=== PATIENT | female | born 1955 | race Caucasian/White ===

== ENCOUNTER 2022-01-13 11:43 | Emergency (ER) | payer OTHER, SELFPAY ==
[2022-01-13 11:50] VITALS: BP 155/83; PULSE 76; RESP 20; TEMP 36.5; O2SAT 95; BMI 33.8
--- NOTE | 2022-01-13 12:40 | CRLHL7_ITS ---
For Patients: As a result of the Cures Act, medical imaging exams and procedure reports are released immediately into your electronic medical record. You may view this report before your referring provider. If you have questions, please contact your health care provider. Indication: Injury and pain. Technique: Left knee 3 views Comparison: 08/16/2020 Findings: Bones: Alignment is normal. No fractures or bone lesions. Joint spaces: No joint effusion. Mild medial compartment narrowing. Mild chondrocalcinosis. Soft tissues: Unremarkable. Impression: No sign of acute injury. Dictated by Everton Delgadillo MD @ 01/13/2022 1:04:35 PM (Electronically Signed)
--- NOTE | 2022-01-13 13:18 | ED.GENADULT ---
HPI - General Adult General Chief complaint: Extremity Pain/Injury, Lower Stated complaint: Left knee pain Time Seen by Provider: 01/13/22 12:05 History of Present Illness HPI narrative: Oliver is a 66yo female that identifies as male that presents to the ED with complaints of left knee pain after a fall at home. The patient denies dizziness or confusion prior to fall, reporting the patient tripped in the home. Patient denies hitting head or loss of consciousness. Patient denies numbness, tingling, or weakness. Patient reports difficulty getting up after fall but was able to ambulate. Patient denies previous injury or trauma to the left knee. Patient denies decreased range of motion. The patient has no other acute concerns or complaints. The patient has taken Tylenol prior to arrival for pain control, with minimal improvement in symptoms. See nursing notes for additional details. Related Data Home Medications Medication Instructions Recorded Confirmed albuterol sulfate 2.5 mg/3 mL mg 01/13/22 (0.083 %) solution for nebulization albuterol sulfate 90 mcg/actuation inhalation 01/13/22 aerosol inhaler aspirin 81 mg tablet,delayed mg 01/13/22 release calcium carbonate 500 mg-vitamin tab 01/13/22 D3 5 mcg (200 unit) tablet (Oyster Shell Calcium-Vitamin D3) cranberry extract 500 mg capsule mg 01/13/22 (Cranberry Concentrate) escitalopram oxalate 20 mg tablet mg 01/13/22 hyoscyamine sulfate 0.125 mg tablet mg 01/13/22 metformin 1,000 mg tablet mg 01/13/22 metoprolol tartrate 25 mg tablet mg 01/13/22 multivitamin tab 01/13/22 olanzapine 10 mg tablet mg 01/13/22 pantoprazole 40 mg tablet,delayed mg PO 01/13/22 release rosuvastatin 5 mg tablet mg 01/13/22 sumatriptan succinate 6 mg subcut .q 2hr PRN migraine 01/13/22 01/13/22 headache Allergies Allergy/AdvReac Type Severity Reaction Status Date / Time adhesive tape Allergy Verified 01/13/22 12:00 Barbiturates Allergy Verified 01/13/22 12:00 bupropion [From Wellbutrin] Allergy Verified 01/13/22 12:00 divalproex sodium Allergy Verified 01/13/22 12:00 [From Depakote] erythromycin base Allergy Verified 01/13/22 12:00 esomeprazole [From Nexium] Allergy Verified 01/13/22 12:00 famotidine [From Pepcid] Allergy Verified 01/13/22 12:00 lansoprazole [From Prevacid] Allergy Verified 01/13/22 12:00 omeprazole [From Prilosec] Allergy Verified 01/13/22 12:00 phenytoin [From Dilantin] Allergy Verified 01/13/22 12:00 sucralfate [From Carafate] Allergy Verified 01/13/22 12:00 Sulfa (Sulfonamide Allergy Verified 01/13/22 12:00 Antibiotics) valproic acid Allergy Verified 01/13/22 12:00 Review of Systems Const: Denies: fatigue or malaise Cardio: Denies: chest pain, palpitations or shortness of breath with exertion Resp: Denies: shortness of breath GI: Denies: abdominal pain or nausea Musculo: Reports: extremity pain and joint pain; Denies: extremity swelling, limited range of motion or muscle weakness Integ/Breast: Reports: other (Minor abrasion noted to the knee.) Neuro: Denies: numbness in extremities, weakness in extremities, lack of coordination, dizziness or confusion Endo: Denies: fatigue PFSH PFSH Social History Smoking Status: Never smoker Do you use any of these nicotine containing products: None Second hand tobacco smoke exposure: No How often do you have a drink containing alcohol: never How often do you have six or more drinks on one occasion: Never AUDIT-C Alcohol total score: 0 Non-prescribed substance use: denies use service: No Exam Const: Vital Signs, click to edit/add: Vital Signs - 24 hr 01/13/22 11:50 Temperature 97.7 F Pulse Rate [Right Pulse Oximeter] 76 Respiratory Rate 20 Blood Pressure [Ri ght Upper Arm] 155/83 H Pulse Oximetry 95 Oxygen Delivery Me thod Room Air Documenting provider has reviewed patient's vital signs: yes Common normals: no apparent distress, oriented x3, no limitations and alert General appearance: cooperative and comfortable; not in distress Nutritional appearance: obese Orientation/consciousness: Yes awake, Yes oriented to person, Yes oriented to place and Yes oriented to time HENMT: Common normals: normocephalic and head/scalp atraumatic Head and scalp: normocephalic and atraumatic Resp: Common normals: normal respiratory effort, no use of accessory muscles and clear to auscultation bilaterally Effort & inspection: able to speak in complete sentences Auscultation: clear to auscultation bilaterally Cardio: Common normals: regular rate, regular rhythm, S1 normal heart sound, S2 normal heart sound and peripheral pulses 2+ throughout Rate: regular rate Rhythm: regular rhythm Heart sounds: S1 normal and S2 normal Peripheral pulses: pulses 2+ throughout Extremity: Common normals: normal to inspection (With the exception of a minor abrasion noted to the anterior knee.), no joint enlargement, no clubbing, cyanosis or edema, no calf tenderness and no pedal edema Left lower extremity: knee joint (Normal, with the exception of the minor abrasion noted to the anterior knee) Left knee: inspection, palpation (Nontender), ROM (Limited secondary to patient's body habitus.) and neurovascular exam (Intact. Denies motor or sensory weakness.) Neuro: Common normals: oriented x3 Sensorium/orientation: awake, alert, oriented to person, oriented to place and oriented to time Gait (neuro): normal gait (For patient with obesity wide based gait noted.) Psych: Common normals: mental status grossly normal, thought process normal, cooperative and affect normal Thought process: normal thought process Skin: Common normals: no rashes or lesions noted (Apart from minor abrasion to the left knee) General skin exam: no rashes or lesions noted (Apart from minor abrasion to the left knee) Course Course Hospital Course: Oliver arrived for knee pain that was evaluated with imaging, found to have no evidence of acute dislocation or fracture. Patient reports no significant change in symptoms. Patient's vital signs have remained stable. The results were discussed, and the patient and significant other verbalized understanding. Reasons for follow-up or return were discussed. Vital Signs Vital signs: Initial Vital Signs Temperature 97.7 F 01/13/22 11:50 Temperature Source Temporal Artery Scan 01/13/22 11:50 Pulse Rate 76 01/13/22 11:50 Respiratory Rate 20 01/13/22 11:50 Blood Pressure 155/83 H 01/13/22 11:50 Blood Pressure Mean 107 01/13/22 11:50 Blood Pressure Position Sitting 01/13/22 11:50 Pulse Oximetry 95 01/13/22 11:50 Oxygen Delivery Method 01/13/22 11:50 Vital Signs Temperature 97.7 F 01/13/22 11:50 Pulse Rate 76 01/13/22 11:50 Respiratory Rate 20 01/13/22 11:50 Blood Pressure 155/83 H 01/13/22 11:50 Pulse Oximetry 95 01/13/22 11:50 Oxygen Delivery Method 01/13/22 11:50 Temperature 97.7 F 01/13/22 11:50 Pulse Rate 76 01/13/22 11:50 Respiratory Rate 20 01/13/22 11:50 Blood Pressure 155/83 H 01/13/22 11:50 Pulse Oximetry 95 01/13/22 11:50 Oxygen Delivery Method 01/13/22 11:50 Medical Decision Making MDM Narrative Medical decision making narrative: Differential diagnosis include fracture, sprain and strain, contusion, dislocation, ligament or tendon damage, and other etiologies. Imaging Data Knee XR: Radiologist's impression: Impression: No sign of acute injury. Discharge Plan Discharge Clinical Impression: Acute knee pain, Fall Patient Disposition: Home, Self-Care Condition: Stable Instructions: Knee Pain (ED) Additional Instructions: Thank you for choosing [facility] for your care today. Take NSAID of choice - Advil, Aleve, Motrin, or substitute - scheduled per package directions with food for 72hrs. Take Tylenol, or substitute, per package directions. Use RICE - rest, ice, compression, and elevation - as needed for symptom control. I recommend following up with your primary physician in 1-2wks if a significant improvement of symptoms is not noted. Continue routine activity as tolerated. You may consider topical medications including capsaicin or lidocaine patches to assist with symptom control. If new or worsening symptoms develop or you have any concerns in the meantime, please call your primary care clinic or return to the ER for re-evaluation. Activity Level: Activity as Tolerated Discharge Diet: Heart Healthy (2 gm sodium, low fat) Prescriptions: No Action multivitamin Tablet Label Comments: TAKE ONE TABLET BY MOUTH EVERY DAY albuterol sulfate 2.5 mg /3 mL (0.083 %) solution for nebulization Label Comments: INHALE 3ML (1 AMPULE) VIA A NEBULIZER EVERY 4 HOURS IF NEEDED FOR FOR SHORTNESS OF BREATH; 1ST CHOICE olanzapine 10 mg tablet Label Comments: TAKE ONE-HALF TABLET BY MOUTH TWICE A DAY aspirin 81 mg tablet,delayed release (DR/EC) Label Comments: TAKE ONE TABLET BY MOUTH ONCE DAILY WITH A MEAL pantoprazole 40 mg tablet,delayed release (DR/EC) PO Label Comments: TAKE ONE TABLET BY MOUTH TWICE A DAY BEFORE MEALS ; TAKE 30-60 MINUTES BEFORE A MEAL/FOOD TWICE A DAY hyoscyamine sulfate 0.125 mg tablet Label Comments: TAKE ONE TABLET BY MOUTH EVERY 4 HOURS NEEDED metformin 1,000 mg tablet Label Comments: TAKE ONE TABLET BY MOUTH TWICE A DAY WITH MEALS albuterol sulfate 90 mcg/actuation HFA aerosol inhaler INHALATION Label Comments: INHALE ONE TO TWO PUFFS BY MOUTH EVERY 4 HOURS NEEDED escitalopram oxalate 20 mg tablet Label Comments: TAKE ONE TABLET BY MOUTH EVERY DAY rosuvastatin 5 mg tablet Label Comments: TAKE ONE TABLET BY MOUTH AT BEDTIME cranberry extract [Cranberry Concentrate] 500 mg capsule Label Comments: TAKE ONE CAPSULE BY MOUTH EVERY DAY metoprolol tartrate 25 mg tablet Label Comments: TAKE ONE TABLET BY MOUTH TWICE A DAY calcium carbonate-vitamin D3 [Oyster Shell Calcium-Vit D3] 500 mg-5 mcg (200 unit) tablet Label Comments: TAKE ONE TABLET BY MOUTH TWICE A DAY WITH MEALS sumatriptan succinate 6 mg subcut .q 2hr PRN (Reason: migraine headache) Follow Up/Referrals: Milad Mock MD [Primary Care Provider] - Stand Alone Forms: [employer] Info Instructions
[2022-01-13] MEDS: KETOROLAC 30 MG/ML inj IM (13:38)
== END 2022-01-13 13:46 | disposition home or self-care (01) ==
PROVIDERS: Emergency Provider Family Medicine; PCP Surgery
DX: M25.562 Pain in left knee (principal); W01.0XXA Fall on same level from slipping, tripping and stumbling without subsequent striking against object, initial encounter
CPT/HCPCS: 73562; 96372; 99283; J1885

== ENCOUNTER 2022-04-08 12:59 | Outpatient (CLI) | payer OTHER, SELFPAY | END 2022-04-08 13:00 | disposition home or self-care (01) | PROVIDERS: PCP Surgery; Visit Provider Family Medicine | DX: S09.93XA Unspecified injury of face, initial encounter (principal); S19.9XXA Unspecified injury of neck, initial encounter; W18.30XA Fall on same level, unspecified, initial encounter; Y92.481 Parking lot as the place of occurrence of the external cause | CPT/HCPCS: A0425; A0429 ==

== ENCOUNTER 2022-10-09 12:41 | Emergency (ER) | payer OTHER, SELFPAY ==
[2022-10-09] VITALS (15 sets, daily range): BP systolic 142–164; BP diastolic 85–152; PULSE 100–129; RESP 20; TEMP 36.6; O2SAT 94–97; BMI 32.0
--- NOTE | 2022-10-09 13:16 | ED_ITS ---
HPI - General Adult General Chief complaint: Weakness Stated complaint: UTI complications Time Seen by Provider: 10/09/22 12:46 History of Present Illness HPI narrative: This 67-year-old female who prefers to be referred to as a mail with male pronouns comes in reporting generalized weakness with some low back pain. He was treated for a urinary tract infection about 3 weeks ago and completed the treatment. There is no report of ongoing dysuria symptoms. He does arrive with normal vital signs except for slightly increased heart rate at around 105-110 beats per minute. He does report a dry mouth. There is no report of fever, cough, or shortness of breath. Related Data Home Medications Medication Instructions Recorded Confirmed albuterol sulfate 2.5 mg/3 mL mg 01/13/22 (0.083 %) solution for nebulization albuterol sulfate 90 mcg/actuation inhalation 01/13/22 aerosol inhaler aspirin 81 mg tablet,delayed mg 01/13/22 release calcium carbonate 500 mg-vitamin tab 01/13/22 D3 5 mcg (200 unit) tablet (Oyster Shell Calcium-Vitamin D3) cranberry extract 500 mg capsule mg 01/13/22 (Cranberry Concentrate) escitalopram oxalate 20 mg tablet mg 01/13/22 hyoscyamine sulfate 0.125 mg tablet mg 01/13/22 metformin 1,000 mg tablet mg 01/13/22 metoprolol tartrate 25 mg tablet mg 01/13/22 multivitamin tab 01/13/22 olanzapine 10 mg tablet mg 01/13/22 pantoprazole 40 mg tablet,delayed mg PO 01/13/22 release rosuvastatin 5 mg tablet mg 01/13/22 sumatriptan succinate 6 mg subcut .q 2hr PRN migraine 01/13/22 01/13/22 headache Previous Rx's Medication Instructions Recorded fluconazole 100 mg tablet 100 mg PO DAILY #7 tabs 10/09/22 (Diflucan) Allergies Allergy/AdvReac Type Severity Reaction Status Date / Time adhesive tape Allergy Verified 01/13/22 12:00 Barbiturates Allergy Verified 01/13/22 12:00 bupropion [From Wellbutrin] Allergy Verified 01/13/22 12:00 divalproex sodium Allergy Verified 01/13/22 12:00 [From Depakote] erythromycin base Allergy Verified 01/13/22 12:00 esomeprazole [From Nexium] Allergy Verified 01/13/22 12:00 famotidine [From Pepcid] Allergy Verified 01/13/22 12:00 lansoprazole [From Prevacid] Allergy Verified 01/13/22 12:00 omeprazole [From Prilosec] Allergy Verified 01/13/22 12:00 phenytoin [From Dilantin] Allergy Verified 01/13/22 12:00 sucralfate [From Carafate] Allergy Verified 01/13/22 12:00 Sulfa (Sulfonamide Allergy Verified 01/13/22 12:00 Antibiotics) valproic acid Allergy Verified 01/13/22 12:00 Review of Systems Status of ROS: Reports: 10 or more systems reviewed and unremarkable except as noted in History and below Narrative: Constitutional: No fevers, no weight gain or loss. Eyes: No discharge. No vision changes. HENT: No congestion, no sore throat, no ear pain. Cardiovascular: No chest pain, no palpitations. Respiratory: No shortness of breath, no wheezes, no cough. Gastrointestinal: No abdominal pain, no vomiting, no diarrhea. Genitourinary: No dysuria, no hematuria. Musculoskeletal: Normal range of motion. Low back pain. Skin: No rashes, no pruritis. Neurological: No dizziness, sensory change, speech change. Generalized weakness . Endo/Heme/Allergies: No bruising or bleeding. No polydipsia. Pysch: no suicidality, no anxiety, no insomnia. All other systems reviewed and are negative. [facility] Social History Smoking Status: Never smoker Do you use any of these nicotine containing products: None Second hand tobacco smoke exposure: No How often do you have a drink containing alcohol: never How often do you have six or more drinks on one occasion: Never AUDIT-C Alcohol total score: 0 Non-prescribed substance use: denies use service: No Exam Narrative: Exam Narrative: Constitutional: Well-developed, well-nourished, no acute distress. HEENT: Normocephalic, atraumatic. Mouth appears somewhat dry. Neck: Normal range of motion. Nontender. Supple. Heart: Regular. No murmurs. Normal rate. Intact distal pulses. Lungs: Clear to auscultation. No chest discomfort. No wheezes, rhonchi, or rales. Abdomen: Normal bowel sounds. Nontender. No rebound tenderness. Genitalia: Deferred. Back: No midline tenderness. Normal range of motion. Extremities: Normal range of motion. No injury. No pedal edema. Skin: Intact. No rash. Warm. No erythema or pallor. Neurologic: No altered sensation. No weakness. Alert and oriented. Psychiatric: No suicidality. No anxiety or depression. No insomnia. Nursing notes and vitals signs are reviewed. Const: Vital Signs, click to edit/add: Vital Signs - 24 hr 10/09/22 12:50 10/09/22 14:27 10/09/22 14:30 Temperature 97.9 F Pulse Rate 120 H 115 H Pulse Rate [Pulse Oximeter] 112 H Respiratory Rate 20 Blood Pressure [Ri ght Forearm] 149/97 H Pulse Oximetry 94 95 96 Oxygen Delivery Me thod Room Air Course Vital Signs Vital signs: Initial Vital Signs Temperature 97.9 F 10/09/22 12:50 Temperature Source Temporal Artery Scan 10/09/22 12:50 Pulse Rate 112 H 10/09/22 12:50 Pulse Rhythm Regular 10/09/22 12:50 Respiratory Rate 20 10/09/22 12:50 Blood Pressure 149/97 H 10/09/22 12:50 Blood Pressure Mean 114 H 10/09/22 12:50 Blood Pressure Position Supine 10/09/22 12:50 Pulse Oximetry 94 10/09/22 12:50 Oxygen Delivery Method Room Air 10/09/22 12:50 Vital Signs Temperature 97.9 F 10/09/22 12:50 Pulse Rate 112 H 10/09/22 12:50 Respiratory Rate 20 10/09/22 12:50 Blood Pressure 149/97 H 10/09/22 12:50 Pulse Oximetry 94 10/09/22 12:50 Oxygen Delivery Method Room Air 10/09/22 12:50 Temperature 97.9 F 10/09/22 12:50 Pulse Rate 115 H 10/09/22 14:30 Respiratory Rate 20 10/09/22 12:50 Blood Pressure 149/97 H 10/09/22 12:50 Pulse Oximetry 96 10/09/22 14:30 Oxygen Delivery Method Room Air 10/09/22 12:50 Medical Decision Making MDM Narrative Medical decision making narrative: An IV was established where he received a L of normal saline. Lab results are acquired and returned with reassuring findings. A urinalysis was ordered and 2 attempts were made to collect urine but in both cases he missed the hat. There is no report of any dysuria symptoms. The patient's partner stated that there was a question whether there may be some thrush as he did finish an antibiotic a week or 2 ago. He did receive an oral tablet of Diflucan 100 mg. At the time of discharge the patient appears safe for outpatient management. The treatment plan is reviewed along with written and verbal return precautions. Reasons to return and the importance of close followup were also reviewed. Lab Data Labs: Lab Results 10/09/22 10/09/22 Range/Units 13:14 13:55 WBC 8.39 (4.50-11.00) K/uL RBC 4.38 (4.00-5.20) m/uL Hgb 13.4 (12.0-16.0) gm/dL Hct 39.5 (33.0-51.0) % MCV 90 (80-100) fL MCH 31 (26-34) pg MCHC 34 (32-36) gm/dL RDW Coeff of Brody 13.3 (11.5-15.5) % Plt Count 346 (140-440) K/uL Neut % (Auto) 65.4 (42.0-72.0) % Lymph % (Auto) 22.5 (20-44) % [place] % (Auto) 8.9 (0.0-11.0) % Eos % (Auto) 2.4 (0.0-7.0) % Baso % (Auto) 0.6 (0.0-3.0) % Neut # (Auto) 5.48 (1.7-7.0) K/uL Lymph # (Auto) 1.89 (0.90-2.90) K/uL [place] # (Auto) 0.70 (0.00-0.90) K/UL Eos # (Auto) 0.20 (0.00-0.50) K/uL Baso # (Auto) 0.05 (0.00-0.30) K/uL Sodium 136 (135-149) mmol/L Potassium 4.2 (3.6-5.1) mmol/L Chloride 104 (96-114) mmol/L Carbon Dioxide 24 (20-32) mmol/L BUN 16 (7-30) mg/dL Creatinine 0.9 (0.5-1.5) mg/dL Estimated Creat Clear 41.99 Estimated GFR 69 ml/min Glucose 97 (60-115) mg/dL Calcium 9.2 (8.4-10.6) mg/dL POC Troponin I 0.04 (0.01-0.04) ng/ml ECG Data Attestation: I personally reviewed and interpreted this ECG as follows: Interpretation: Sinus tachycardia, rate 107 beats per minute. There are no specific ST or T- wave abnormalities. Discharge Plan Discharge Clinical Impression: Weakness, Fluid volume depletion Patient Disposition: Home w/ Parent or Adult Condition: Stable Additional Instructions: Continue current plans. Activity as tolerated. Follow up with MD or return if worsening. Prescriptions: New fluconazole [Diflucan] 100 mg tablet 100 mg PO DAILY Qty: 7 0RF No Action multivitamin Tablet Patient Comments: TAKE ONE TABLET BY MOUTH EVERY DAY albuterol sulfate 2.5 mg /3 mL (0.083 %) solution for nebulization Patient Comments: INHALE 3ML (1 AMPULE) VIA A NEBULIZER EVERY 4 HOURS IF NEEDED FOR FOR SHORTNESS OF BREATH; 1ST CHOICE olanzapine 10 mg tablet Patient Comments: TAKE ONE-HALF TABLET BY MOUTH TWICE A DAY aspirin 81 mg tablet,delayed release (DR/EC) Patient Comments: TAKE ONE TABLET BY MOUTH ONCE DAILY WITH A MEAL pantoprazole 40 mg tablet,delayed release (DR/EC) PO Patient Comments: TAKE ONE TABLET BY MOUTH TWICE A DAY BEFORE MEALS ; TAKE 30-60 MINUTES BEFORE A MEAL/FOOD TWICE A DAY hyoscyamine sulfate 0.125 mg tablet Patient Comments: TAKE ONE TABLET BY MOUTH EVERY 4 HOURS NEEDED metformin 1,000 mg tablet Patient Comments: TAKE ONE TABLET BY MOUTH TWICE A DAY WITH MEALS albuterol sulfate 90 mcg/actuation HFA aerosol inhaler INHALATION Patient Comments: INHALE ONE TO TWO PUFFS BY MOUTH EVERY 4 HOURS NEEDED escitalopram oxalate 20 mg tablet Patient Comments: TAKE ONE TABLET BY MOUTH EVERY DAY rosuvastatin 5 mg tablet Patient Comments: TAKE ONE TABLET BY MOUTH AT BEDTIME cranberry extract [Cranberry Concentrate] 500 mg capsule Patient Comments: TAKE ONE CAPSULE BY MOUTH EVERY DAY metoprolol tartrate 25 mg tablet Patient Comments: TAKE ONE TABLET BY MOUTH TWICE A DAY calcium carbonate-vitamin D3 [Oyster Shell Calcium-Vit D3] 500 mg-5 mcg (200 unit) tablet Patient Comments: TAKE ONE TABLET BY MOUTH TWICE A DAY WITH MEALS sumatriptan succinate 6 mg subcut .q 2hr PRN (Reason: migraine headache) Follow Up/Referrals: Milad Mock MD [Primary Care Provider] - Stand Alone Forms: [employer] ([facility]) Info Instructions
[2022-10-09 14:24] LABS: Chloride* 104 mmol/L (96-114); Potassium* 4.2 mmol/L (3.6-5.1); Sodium* 136 mmol/L (135-149)
[2022-10-09 14:27] LABS: Blood Urea Nitrogen* 16 mg/dL (7-30); Carbon Dioxide* 24 mmol/L (20-32); Creatinine* 0.9 mg/dL (0.5-1.5); Est. Creatinine Clearance* 41.99; Estimated Glomerular Filt Rate 69 ml/min
[2022-10-09 14:28] LABS: Calcium* 9.2 mg/dL (8.4-10.6); Glucose* 97 mg/dL (60-115)
[2022-10-09 14:38] LABS: Troponin, Point-of-Care* 0.04 ng/ml (0.01-0.04)
[2022-10-09] MEDS: KETOROLAC 30 MG/ML inj 15 MG IVP (14:38)
[2022-10-09] MEDS: 0.9 % SODIUM CHLORIDE 1000 ml 1,000 ML IV (14:38)
[2022-10-09 14:43] LABS: Basophils Absolute Auto 0.05 K/uL (0.00-0.30); Basophils Percent Auto 0.6 % (0.0-3.0); Eosinophils Percent Auto 2.4 % (0.0-7.0); Hematocrit 39.5 % (33.0-51.0); Hemoglobin* 13.4 gm/dL (12.0-16.0); Immature Granulocytes Abs Auto 0.02 K/uL (0.00-0.30); Immature Granulocytes Pct Auto 0.2 %; Lymphocytes Absolute Auto 1.89 K/uL (0.90-2.90); Lymphocytes Percent Auto 22.5 % (20-44); Mean Corpuscular HGB Conc 34 gm/dL (32-36); Mean Corpuscular Hemoglobin 31 pg (26-34); Mean Corpuscular Volume 90 fL (80-100); Monocytes Percent Auto 8.9 % (0.0-11.0); Neutrophils Absolute Auto 5.48 K/uL (1.7-7.0); Neutrophils Percent Auto 65.4 % (42.0-72.0); Platelet Count* 346 K/uL (140-440); RDW Coefficient of Variation % 13.3 % (11.5-15.5); Red Blood Count 4.38 m/uL (4.00-5.20); White Blood Count* 8.39 K/uL (4.50-11.00)
[2022-10-09 14:44] LABS: Slide Review Reflex No
[2022-10-09] MEDS: FLUCONAZOLE 100 MG TABLET PO (16:38)
== END 2022-10-09 16:37 | disposition home or self-care (01) ==
PROVIDERS: Emergency Provider Emergency Medicine Emergency Medical Services; PCP Surgery
DX: E86.9 Volume depletion, unspecified (principal); R53.1 Weakness
CPT/HCPCS: 36415; 80048; 81001; 84484; 85025; 93005; 96374; 99284; A9270; J1885; J7030